=== PATIENT | female | born 1940 | race Caucasian/White ===

== ENCOUNTER → 2016-11-27 | Outpatient (CLI) | payer MEDICARE ==
[~2016-11-27] MED LIST: LOTREL 5/20 MG1 CAP PO; TOPROL XL PO
--- NOTE | ~2016-11-27 | BD1 ---
[facility] A Service of [facility] RADIOLOGY TEXT RESULTS PATIENT: ADELE ABDI LOCATION: [facility] : 40 UNIT #: [id number] AGE: [address]: Maddie Meyer MD SEX: F ORDER DR: [id number] [place] [id number] [facility]. [place], [place] [address] [id number] O MR#: [id number] Acc #: [id number] NAME: ADELE ABDI : 1940 SEX: F STUDY DATE/TIME: 11/27/2016 11:36 UNIT: [facility] ROOM: STUDY DESCRIPTION: BD Dexa Bone Dens 1+ Site Attending Physician: Maddie Meyer M.D. Ordering Physician: Maddie Meyer M.D. Primary Care Physician: Maddie Meyer M.D. MEDICAL IMAGING REPORT This report is preliminary unless electronic signature is present EXAM DXA scan. HISTORY 76-year-old female postmenopausal screening for osteoporosis. FINDINGS Bone density was assessed utilizing a Hologic bone densitometer. Total bone density within the lumbar spine was calculated at 1.059 g/cm2 with a T-score of 0.1. This may be falsely elevated due to degenerative sclerosis within the spine. The patient does demonstrate scoliosis with asymmetric reactive sclerosis. Total bone density in the proximal left femur was calculated at 0.756 g/cm2 with a T-score of -1.5. Femoral neck bone density was calculated at 0.615 g/cm2 with a T-score of -2.1. When compared to the patient's study from February of 2009, there has been a 10% decrease in bone density within the proximal left femur and this is statistically significant. IMPRESSION 1. Total bone density within the proximal left femur and within the femoral neck is between 1-2.5 standard deviations below the mean and is compatible World Health Organization criteria for osteopenia. This places the patient at increased fracture risk. When compared to the study of 2008, there has been about a 10% decrease in bone density. 2. Lumbar spine density is within 1 standard deviation of the mean, but this is most likely falsely elevated due to degenerative sclerosis. STS. [facility] A Service of [facility] RADIOLOGY TEXT RESULTS PATIENT: ADELE ABDI LOCATION: [facility] : 40 UNIT #: [id number] AGE: [address]: Maddie Meyer MD SEX: F ORDER DR: Dictated by... Fazal Woo M.D. THIS IS AN ELECTRONICALLY VERIFIED REPORT Fazal Woo M.D. at 11/28/2016 5:09 PM EDWIN/aleta TD: 11/28/2016 14:18 JOB #: [id number] MEDICAL IMAGING REPORT COPY
--- NOTE | ~2016-11-27 | MY11 ---
[facility] A Service of [facility] RADIOLOGY TEXT RESULTS PATIENT: ADELE ABDI LOCATION: [facility] : 40 UNIT #: [id number] AGE: [address]: Maddie Meyer MD SEX: F ORDER DR: [id number] [facility] [address] [facility]. [place], [place] [address] [id number] O MR#: [id number] Acc #: [id number] NAME: ADELE ABDI. : 1940 SEX: F STUDY DATE/TIME: 11/27/2016 11:42 UNIT: [facility] ROOM: STUDY DESCRIPTION: MY Mammogram Screening Dig Artis Attending Physician: Maddie Meyer M.D. Ordering Physician: Maddie Meyer M.D. Primary Care Physician: Maddie Meyer M.D. MEDICAL IMAGING REPORT This report is preliminary unless electronic signature is present EXAM Bilateral digital screening mammogram with CAD 11/27/2016 HISTORY Routine screening. No reported problems. No personal or family history of breast cancer. No surgeries. CC and MLO views of the breasts were obtained and reviewed with an FDA approved CAD device. COMPARISON STUDIES 07/31/2015, 07/11/2014, 07/08/2013 FINDINGS Breast parenchyma is composed of scattered fibroglandular densities. The pattern is unchanged. There is no new dominant nodule or mass in either breast. No new suspicious cluster of microcalcifications. Benign calcifications are present. Mild fibroglandular predominance in the outer hemisphere left breast is stable. IMPRESSION Benign screening mammogram, 1 year followup recommended. Patients over the age of 40 are entered into a reminder system with target due date for the next mammogram. A result letter will also be sent to the patient. BIRADS: 2 - Benign finding Dictated by... Montana Houston M.D. THIS IS AN ELECTRONICALLY VERIFIED REPORT [facility] A Service [facility] RADIOLOGY TEXT RESULTS PATIENT: ADELE ABDI LOCATION: [facility] : 40 UNIT #: [id number] AGE: [address]: Maddie Meyer MD SEX: F ORDER DR: Montana Houston M.D. at 11/28/2016 8:05 AM MIRTHA/gil TD: 11/27/2016 15:27 JOB #: [id number] MEDICAL IMAGING REPORT COPY
== END | disposition home or self-care (01) ==
LOC: CWCC 11:13
DX: Z13.820 Encounter for screening for osteoporosis (principal); Z12.31 Encounter for screening mammogram for malignant neoplasm of breast; M85.88 Other specified disorders of bone density and structure, other site
CPT/HCPCS: 77080; G0202